=== PATIENT | male | born 1995 | race African-American/Black ===

== ENCOUNTER 2017-02-25 21:49 | Emergency (ER) | payer MEDICAID ==
[~2017-02-25] VITALS: Ht 165.1 cm; Wt 70.3 kg
[2017-02-25 22:02] VITALS: BP 122/67
[2017-02-25] MEDS ORDERED: LIDOCAINE 0.5% HCL 50 ML VIAL ONE (22:09)
[2017-02-25] MEDS ORDERED: TDAP [DIPH/PERTUSSIS/TET] 0.5 ML VIAL IM ONE ×2 (22:30→22:52)
[2017-02-25] MEDS ORDERED: LIDOCAINE 1% INJ 50 ML MDV IJ ONE (22:30)
[2017-02-25] MEDS ORDERED: IBUPROFEN 600 MG TABLET PO ONE ×2 (23:00)
[2017-02-25] MEDS ORDERED: SULFAMETH/TRIMETH 800/160 MG 1 UDTAB TABLET PO ONE ×2 (23:00)
== END 2017-02-25 23:12 | disposition home or self-care (01) ==
LOC: ER 21:55
DX: L02.415 Cutaneous abscess of right lower limb (principal); F17.200 Nicotine dependence, unspecified, uncomplicated; F12.10 Cannabis abuse, uncomplicated
CPT/HCPCS: 90715; A4606; A6402; J3490; Z7610